=== PATIENT | female | born 1945 | race Two or more races ===

== ENCOUNTER 2025-02-01 18:20 | Inpatient (IN) | payer OTHER, MEDICAID ==
[~2025-02-01] VITALS: Ht 154.9 cm; Wt 64.5 kg
[2025-02-01] MEDS ORDERED: 0.9% SODIUM CHLORIDE 10 ML SYRINGE IVP PRN (19:15)
[2025-02-01] MEDS: SODIUM CHLORIDE 0.9% 2,250 ML IV ONE (19:28)
[2025-02-01] MEDS: ACETAMINOPHEN 500 MG TABLET PO ONE (19:28)
[2025-02-01] MEDS: CefTRIAXone 1 GM/DEXTROSE 50 ML IV ONE (19:35)
[2025-02-01 19:58] LABS: PLATELET COUNT (AUTO) 289 K/uL (150-450); RED BLOOD CELL COUNT(AUTO) 3.89 MIL/uL (4.00-5.20); RED CELL DISTRIBUTION WIDTH 14.1 % (11.5-14.5); WHITE BLOOD COUNT (AUTO) 4.8 K/uL (4.5-11.0)
[2025-02-01 20:00] LABS: CALCIUM, TOTAL 8.4 mg/dL (8.8-10.5); CREATININE 1.64 mg/dL (0.60-1.30); GLOMERULAR FILTR. RATE CALC 30 mL/min (>60); GLUCOSE,RANDOM 310 mg/dL (70-110); SODIUM SERUM 134 mmol/L (136-145); UREA NITROGEN, BLOOD 44 mg/dL (7-18)
[2025-02-01 20:09] LABS: TROPONIN I-HIGH SENSITIVITY 9 ng/L (<51)
[2025-02-01 20:19] LABS: LACTIC ACID 1.3 mmol/L (0.4-2.0)
[2025-02-01] MEDS ORDERED: INSULIN LISPRO 100 UNITS/ML SQ PRN (21:15)
[2025-02-01] MEDS ORDERED: DEXTROSE 50%-WATER 25 GM/50 ML SYRINGE IVP PRN (21:15)
[2025-02-01] MEDS: DOCUSATE SODIUM 100 MG CAPSULE PO SCH (21:21)
[2025-02-01 21:23] LABS: APPEARANCE,URINE CLEAR (CLEAR); GLUCOSE, URINE (UA) >=1000 mg/dL (NEGATIVE); LEUKOCYTE ESTERASE ,URINE NEGATIVE (NEGATIVE); NITRATE,URINE NEGATIVE (NEGATIVE); OCCULT BLOOD,URINE NEGATIVE (NEGATIVE); SPECIFIC GRAVITIY, URINE 1.012 (1.003-1.030)
[2025-02-01 21:47] LABS: SQUAMOUS EPITHELIAL CELL,UR Few /LPF (None Seen)
[2025-02-01 22:05] LABS: TOTAL PROTEIN, SERUM 6.3 g/dL (6.4-8.2)
[2025-02-01] MEDS: SODIUM CHLORIDE 0.9% 500 ML IV ONE (23:02)
[2025-02-01] MEDS: HEPARIN SODIUM,PORCINE 5,000 UNITS/ML VIAL SQ SCH (23:03)
[2025-02-01] MEDS: NOREPINEPHRINE 8 MG/0.9 % NACL 250 ML IV PRN (23:30)
[2025-02-02 00:06] LABS: GLUCOMETER DEV NAME(LOC) ERT.7; GLUCOSE,POINT OF CARE 221 MG/DL (70-110)
[2025-02-02 00:42] LABS: CALCIUM, TOTAL 7.4 mg/dL (8.8-10.5); CREATININE 1.53 mg/dL (0.60-1.30); GLOMERULAR FILTR. RATE CALC 33.0 mL/min (>60); GLUCOSE,RANDOM 248.0 mg/dL (70-110); SODIUM SERUM 136.0 mmol/L (136-145); UREA NITROGEN, BLOOD 40.0 mg/dL (7-18)
[2025-02-02] MEDS: MetroNIDAZOLE 500 MG/NACL 100 ML IV ONE (02:19)
[2025-02-02 05:36] LABS: PLATELET COUNT (AUTO) 308 K/uL (150-450); RED BLOOD CELL COUNT(AUTO) 2.94 MIL/uL (4.00-5.20); RED CELL DISTRIBUTION WIDTH 14.0 % (11.5-14.5); WHITE BLOOD COUNT (AUTO) 8.2 K/uL (4.5-11.0)
[2025-02-02 05:57] LABS: CALCIUM, TOTAL 7.4 mg/dL (8.8-10.5); CREATININE 1.76 mg/dL (0.60-1.30); GLOMERULAR FILTR. RATE CALC 28.0 mL/min (>60); GLUCOSE,RANDOM 245.0 mg/dL (70-110); SODIUM SERUM 138.0 mmol/L (136-145); TOTAL PROTEIN, SERUM 6.3 g/dL (6.4-8.2); UREA NITROGEN, BLOOD 41.0 mg/dL (7-18)
[2025-02-02] MEDS ORDERED: PIPERACILLIN/TAZO 3.375 GM/D5W 50 ML IV ONE (06:00)
[2025-02-02 06:02] LABS: ASPARTATE AMINOTRANSFERASE 2508.0 U/L (15-37)
[2025-02-02] MEDS: PIPERACILLIN SODIUM/TAZOBACTAM 2.25 GM in DEXTROSE 5%-WATER 50 ML IV ONE (06:44)
[2025-02-02] MEDS: FAMOTIDINE 20 MG TABLET PO SCH (07:43)
[2025-02-02] MEDS: LORazepam 2 MG/ML VIAL IVP ONE (08:24)
[2025-02-02] MEDS: SODIUM CHLORIDE 0.9% 1,000 ML IV ONE (08:24)
[2025-02-02] MEDS ORDERED: IODIXANOL 320 MG/ML 50 ML VIAL ONE ×2 (10:18→11:53)
[2025-02-02] MEDS ORDERED: PROPOFOL 1% 20 ML VIAL IVP ONE (12:00)
[2025-02-02] MEDS ORDERED: KETAMINE HCL 50 MG/ML 10 ML VIAL ONE (12:00)
[2025-02-02] MEDS ORDERED: GLUCAGON,HUMAN RECOMBINANT 1 MG VIAL ONE (12:00)
[2025-02-02] MEDS ORDERED: LIDOCAINE/PF 2% 5 ML VIAL ONE (12:00)
[2025-02-02] MEDS ORDERED: PIPERACILLIN/TAZO 3.375 GM/D5W 50 ML IV SCH (12:00)
[2025-02-02 12:22] VITALS: BP_SYST 110; BP_DIAS 41; BP_DIAS 43; PULSE 80; PULSE 81; RESP 18; TEMP 98.8; O2SAT 98
[2025-02-02 12:24] VITALS: BP 113/61; PULSE 74; RESP 14; TEMP 98.8; O2SAT 98
[2025-02-02 14:21] LABS: GLUCOMETER DEV NAME(LOC) ICUN.7; GLUCOSE,POINT OF CARE 135 MG/DL (70-110)
[2025-02-02 16:00] VITALS: BP 117/50; PULSE 79; RESP 18; TEMP 98.9; O2SAT 98
[2025-02-02 16:22] VITALS: PULSE 85
[2025-02-02] MEDS: DEXTROSE 5%-LACTATED RINGERS 1,000 ML IV SCH (17:21)
[2025-02-02] MEDS: PIPERACILLIN SODIUM/TAZOBACTAM 2.25 GM in DEXTROSE 5%-WATER 50 ML IV SCH (17:21)
[2025-02-02] MEDS: INFLUENZA VIRUS VACCINE TVS (6MO+) 2025-26/PF 45 MCG/0.5 ML SYRINGE IM. ONE (17:23)
[2025-02-02] MEDS: ACETAMINOPHEN 325 MG TABLET PO PRN (17:34)
[2025-02-02] MEDS: ONDANSETRON HCL 4 MG/2 ML VIAL IVP PRN (17:35)
[2025-02-02] MEDS ORDERED: CefTRIAXone 1 GM/DEXTROSE 50 ML IV SCH (18:00)
[2025-02-02 18:21] LABS: GLUCOMETER DEV NAME(LOC) ICU.S7; GLUCOSE,POINT OF CARE 210 MG/DL (70-110)
[2025-02-02 20:00] VITALS: BP 102/45; PULSE 71; RESP 18; TEMP 98; O2SAT 94
[2025-02-02] MEDS ORDERED: GLUCAGON,HUMAN RECOMBINANT 1 MG VIAL IM PRN (21:15)
[2025-02-02] MEDS ORDERED: DEXTROSE 50%-WATER 25 GM/50 ML SYRINGE IVP PRN (21:45)
[2025-02-02] MEDS: INSULIN LISPRO 100 UNITS/ML SQ PRN (21:51)
[2025-02-02] MEDS: *CLINICAL-AZTREONAM DOSING CLINICAL ONE (23:17)
[2025-02-03] VITALS (7 sets, daily range): BP systolic 102–162; BP diastolic 45–81; PULSE 71–112; RESP 13–18; TEMP 98.3–99.4; O2SAT 92–98
[2025-02-03] MEDS: AZTREONAM 1 GM in DEXTROSE 5%-WATER 50 ML IV ONE (03:52)
[2025-02-03 06:50] LABS: GLUCOMETER DEV NAME(LOC) ICU.S7; GLUCOSE,POINT OF CARE 214 MG/DL (70-110)
[2025-02-03 06:51] LABS: GLUCOMETER DEV NAME(LOC) ICUN.7; GLUCOSE,POINT OF CARE 193 MG/DL (70-110)
[2025-02-03 11:45] LABS: PLATELET COUNT (AUTO) 355 K/uL (150-450); RED BLOOD CELL COUNT(AUTO) 3.24 MIL/uL (4.00-5.20); RED CELL DISTRIBUTION WIDTH 14.8 % (11.5-14.5); WHITE BLOOD COUNT (AUTO) 6.1 K/uL (4.5-11.0)
[2025-02-03 11:53] LABS: BAND NEUTROPHILS % (MANUAL) 3 % (0-5); EOSINOPHILS % (MANUAL) 1 % (1-6); LYMPHOCYTES % (MANUAL) 6 % (22-44); MONOCYTES % (MANUAL) 3 % (2-9); RBC MORPHOLOGY COMMENT NORMAL RBC MORPH; SEGMENTED NEUTROPHILS % 87 % (40-70)
[2025-02-03 11:57] LABS: CALCIUM, TOTAL 7.7 mg/dL (8.8-10.5); CREATININE 1.54 mg/dL (0.60-1.30); GLOMERULAR FILTR. RATE CALC 32.0 mL/min (>60); GLUCOSE,RANDOM 241.0 mg/dL (70-110); SODIUM SERUM 137.0 mmol/L (136-145); UREA NITROGEN, BLOOD 25.0 mg/dL (7-18)
[2025-02-03] MEDS ORDERED: AZTREONAM 0.5 GM in DEXTROSE 5%-WATER 50 ML IV SCH (12:00)
[2025-02-03] MEDS: AZTREONAM 1 GM in DEXTROSE 5%-WATER 50 ML IV SCH (12:42)
[2025-02-03 12:56] LABS: GLUCOMETER DEV NAME(LOC) ICUN.7; GLUCOSE,POINT OF CARE 239 MG/DL (70-110)
[2025-02-03 17:46] LABS: GLUCOMETER DEV NAME(LOC) ICU.S7; GLUCOSE,POINT OF CARE 256 MG/DL (70-110)
[2025-02-03 23:56] LABS: GLUCOMETER DEV NAME(LOC) 5S.2E; GLUCOSE,POINT OF CARE 296 MG/DL (70-110)
[2025-02-04 03:06] VITALS: BP 145/64; PULSE 79; RESP 16; TEMP 98.4; O2SAT 97
[2025-02-04 06:40] LABS: GLUCOMETER DEV NAME(LOC) 5N.1D; GLUCOSE,POINT OF CARE 235 MG/DL (70-110)
[2025-02-04 07:45] VITALS: BP 150/70; PULSE 77; RESP 18; TEMP 97.7; O2SAT 95
[2025-02-04 10:00] LABS: ASPARTATE AMINOTRANSFERASE 400.0 U/L (15-37); TOTAL PROTEIN, SERUM 6.2 g/dL (6.4-8.2)
[2025-02-04 10:56] VITALS: BP 145/58; PULSE 79; RESP 17; TEMP 98.4; O2SAT 98
[2025-02-04 11:45] LABS: GLUCOMETER DEV NAME(LOC) 5N.1D; GLUCOSE,POINT OF CARE 280 MG/DL (70-110)
[2025-02-04 15:52] VITALS: BP 154/65; PULSE 83; RESP 16; TEMP 98.8; O2SAT 95
[2025-02-05] VITALS: BP 136/68; PULSE 70; RESP 16; TEMP 98.2; O2SAT 97
[2025-02-05 04:00] VITALS: BP 140/65; PULSE 82; RESP 18; TEMP 97.9; O2SAT 96
[2025-02-05 07:39] VITALS: BP 160/75; PULSE 83; RESP 16; TEMP 98.2; O2SAT 95
[2025-02-05 08:16] LABS: GLUCOMETER DEV NAME(LOC) 5S.2E; GLUCOSE,POINT OF CARE 236 MG/DL (70-110)
[2025-02-05 08:17] LABS: GLUCOMETER DEV NAME(LOC) 5N.1D; GLUCOSE,POINT OF CARE 254 MG/DL (70-110)
[2025-02-05 08:17] LABS: GLUCOMETER DEV NAME(LOC) 5N.1D; GLUCOSE,POINT OF CARE 246 MG/DL (70-110)
[2025-02-05 11:13] VITALS: BP 153/76; PULSE 76; RESP 16; TEMP 97.7; O2SAT 100
[2025-02-05 11:46] LABS: PLATELET COUNT (AUTO) 389 K/uL (150-450); RED BLOOD CELL COUNT(AUTO) 3.28 MIL/uL (4.00-5.20); RED CELL DISTRIBUTION WIDTH 14.7 % (11.5-14.5); WHITE BLOOD COUNT (AUTO) 4.4 K/uL (4.5-11.0)
[2025-02-05 12:03] LABS: ASPARTATE AMINOTRANSFERASE 231.0 U/L (15-37); CALCIUM, TOTAL 8.4 mg/dL (8.8-10.5); CREATININE 1.39 mg/dL (0.60-1.30); GLOMERULAR FILTR. RATE CALC 36.0 mL/min (>60); GLUCOSE,RANDOM 274.0 mg/dL (70-110); SODIUM SERUM 133.0 mmol/L (136-145); TOTAL PROTEIN, SERUM 6.9 g/dL (6.4-8.2); UREA NITROGEN, BLOOD 22.0 mg/dL (7-18)
[2025-02-05] MEDS: *CLINICAL-LEVOFLOXACIN IVPB DOSING CLINICAL ONE (14:00)
[2025-02-05 15:47] VITALS: BP 159/64; PULSE 81; RESP 16; TEMP 98.1; O2SAT 96
[2025-02-05] MEDS: LEVOFLOXACIN 750 MG/D5% WATER 150 ML IV SCH (16:03)
[2025-02-05 17:36] LABS: GLUCOMETER DEV NAME(LOC) 5S.2E; GLUCOSE,POINT OF CARE 239 MG/DL (70-110)
[2025-02-05 17:36] LABS: GLUCOMETER DEV NAME(LOC) 5S.2E; GLUCOSE,POINT OF CARE 261 MG/DL (70-110)
[2025-02-05 20:00] VITALS: BP 155/71; PULSE 80; RESP 20; TEMP 97.9; O2SAT 96
[2025-02-06 04:00] VITALS: BP 153/67; PULSE 88; RESP 18; TEMP 98.1; O2SAT 98
[2025-02-06 07:10] LABS: GLUCOMETER DEV NAME(LOC) 4E.2; GLUCOSE,POINT OF CARE 293 MG/DL (70-110)
[2025-02-06 07:32] VITALS: BP 140/75; PULSE 84; RESP 18; TEMP 98.8; O2SAT 100
[2025-02-06 10:58] LABS: PLATELET COUNT (AUTO) 368 K/uL (150-450); RED BLOOD CELL COUNT(AUTO) 2.69 MIL/uL (4.00-5.20); RED CELL DISTRIBUTION WIDTH 14.2 % (11.5-14.5); WHITE BLOOD COUNT (AUTO) 4.6 K/uL (4.5-11.0)
[2025-02-06 11:10] LABS: GLUCOMETER DEV NAME(LOC) 4E.2; GLUCOSE,POINT OF CARE 380 MG/DL (70-110)
[2025-02-06 15:29] VITALS: BP 151/72; PULSE 77; RESP 18; TEMP 98.1; O2SAT 97
[2025-02-06 17:11] LABS: GLUCOMETER DEV NAME(LOC) 4E.2; GLUCOSE,POINT OF CARE 343 MG/DL (70-110)
[2025-02-06 19:45] VITALS: BP 153/64; PULSE 72; RESP 18; TEMP 98.4; O2SAT 99
[2025-02-07 04:25] VITALS: BP 150/67; PULSE 82; RESP 18; TEMP 98.1; O2SAT 100
[2025-02-07 07:56] LABS: GLUCOMETER DEV NAME(LOC) 4E.2; GLUCOSE,POINT OF CARE 409 MG/DL (70-110)
[2025-02-07 07:56] LABS: GLUCOMETER DEV NAME(LOC) 4E.2; GLUCOSE,POINT OF CARE 321 MG/DL (70-110)
[2025-02-07 08:00] VITALS: BP 171/69; PULSE 76; RESP 18; TEMP 98.1; O2SAT 97
[2025-02-07 08:54] LABS: ASPARTATE AMINOTRANSFERASE 114.0 U/L (15-37); CALCIUM, TOTAL 8.6 mg/dL (8.8-10.5); CREATININE 1.22 mg/dL (0.60-1.30); GLOMERULAR FILTR. RATE CALC 42.0 mL/min (>60); GLUCOSE,RANDOM 213.0 mg/dL (70-110); SODIUM SERUM 136.0 mmol/L (136-145); TOTAL PROTEIN, SERUM 6.6 g/dL (6.4-8.2); UREA NITROGEN, BLOOD 22.0 mg/dL (7-18)
[2025-02-07] MEDS ORDERED: AMLO2.5T96 PO (10:31)
[2025-02-07] MEDS ORDERED: LEVO750T68 PO (10:31)
[2025-02-07 12:07] LABS: PLATELET COUNT (AUTO) 362 K/uL (150-450); RED BLOOD CELL COUNT(AUTO) 3.43 MIL/uL (4.00-5.20); RED CELL DISTRIBUTION WIDTH 15.0 % (11.5-14.5); WHITE BLOOD COUNT (AUTO) 4.1 K/uL (4.5-11.0)
[2025-02-07 13:36] VITALS: BP 160/67; PULSE 85
[2025-02-07] MEDS ORDERED: GLIP5TAB16 PO (14:24)
[2025-02-07] MEDS ORDERED: AMLO-257 PO (14:24)
[2025-02-07 15:41] VITALS: BP 176/68; PULSE 79; RESP 17; TEMP 98.1; O2SAT 97
[2025-02-07 18:00] LABS: GLUCOMETER DEV NAME(LOC) 4E.2; GLUCOSE,POINT OF CARE 280 MG/DL (70-110)
[2025-02-07 19:37] VITALS: BP 131/62; PULSE 81; RESP 18; TEMP 98.1; O2SAT 96
[2025-02-07] MEDS ORDERED: ETHYL ALCOHOL 62% ANTISEPTIC NASAL SANITIZER 0.6 ML AMPUL NASAL SCH (21:00)
[2025-02-07 21:21] LABS: GLUCOMETER DEV NAME(LOC) 4E.2; GLUCOSE,POINT OF CARE 226 MG/DL (70-110)
[2025-02-08 04:09] VITALS: BP 158/66; PULSE 83; RESP 18; TEMP 97.8; O2SAT 95
[2025-02-08 04:36] LABS: GLUCOMETER DEV NAME(LOC) 4E.2; GLUCOSE,POINT OF CARE 227 MG/DL (70-110)
[2025-02-08 08:10] VITALS: BP 153/71; PULSE 90; RESP 18; TEMP 98.2; O2SAT 96
[2025-02-08 11:55] LABS: GLUCOMETER DEV NAME(LOC) 4E.2; GLUCOSE,POINT OF CARE 247 MG/DL (70-110)
[2025-02-08 15:38] VITALS: BP 155/62; PULSE 93; RESP 18; TEMP 98.1; O2SAT 98
[2025-02-08 17:10] LABS: GLUCOMETER DEV NAME(LOC) 4E.2; GLUCOSE,POINT OF CARE 266 MG/DL (70-110)
== END 2025-02-08 19:00 | DRG 853 ==
LOC: EMS 18:20 → EDH 22:13 → ICU 02-02 12:05 → 5S 02-03 18:00 → 4E 02-05 18:02
PROVIDERS: ADMIT Internal Medicine; ATTEND Internal Medicine
PROC: 0FC48ZZ Extirpation of Matter from Gallbladder, Via Natural or Artificial Opening Endoscopic (ICD-10-PCS; 2025-02-02)
PROC: BF101ZZ Fluoroscopy of Bile Ducts using Low Osmolar Contrast (ICD-10-PCS; 2025-02-02)
PROC: 0F798ZZ Dilation of Common Bile Duct, Via Natural or Artificial Opening Endoscopic (ICD-10-PCS; principal; 2025-02-02 11:30)
DX: A41.9 Sepsis, unspecified organism (principal); R65.21 Severe sepsis with septic shock; K80.32 Calculus of bile duct with acute cholangitis without obstruction; N17.9 Acute kidney failure, unspecified; E11.65 Type 2 diabetes mellitus with hyperglycemia; B96.20 Unspecified Escherichia coli [E. coli] as the cause of diseases classified elsewhere; B95.7 Other staphylococcus as the cause of diseases classified elsewhere; D64.9 Anemia, unspecified; I10 Essential (primary) hypertension; E03.9 Hypothyroidism, unspecified; R74.01 Elevation of levels of liver transaminase levels; K82.8 Other specified diseases of gallbladder; E78.00 Pure hypercholesterolemia, unspecified; Z79.899 Other long term (current) drug therapy; Z83.3 Family history of diabetes mellitus; Z79.84 Long term (current) use of oral hypoglycemic drugs
CPT/HCPCS: 51702; 71045; 74176; 74181; 76001; 76705; 80048; 80053; 80076; 81001; 82962; 83605; 83690; 83880; 84145; 84484; 85025; 85610; 87040; 87077; 87081; 87086; 87186; 87205; 90686; 93005; 96361; 96365; 97116; 97163; 97166; 97530; 97535; 99291; G0378; J0696; J1610; J1644; J1956; J2060; J2405; J2543; J2704; J3490; J7060; Q9967; 36415-L1; 36415-TC; G0008